=== PATIENT | male | born 1985 | race Caucasian/White ===

== ENCOUNTER 2020-02-27 21:08 | Emergency (ER) | payer MEDICAID ==
[~2020-02-27] VITALS: Ht 175.3 cm; Wt 65.9 kg
--- NOTE | 2020-02-27 21:24 | NUR ---
pt bib ems, pt found at [facility], pt found to be drunk. vss. pt puked when arriving to hospital, suction at bedside. pt responsive when talking with him, pt aware he is at hospital and responds to name. pt slurring speech and dozing off when talking with him. erp saw pt, pt provided urinal, on continuous pulse ox
--- NOTE | 2020-02-27 23:10 | NUR ---
PT SNORING IN BED, RESP EVEN/UNLABORED. EKG TAKEN AND GIVEN TO ERP
[2020-02-28] MEDS ORDERED: ALBUTEROL SULFATE 2.5 MG/3 ML ONE (00:18)
[2020-02-28] MEDS ORDERED: SODIUM CHLORIDE 0.9% 1,000ML IVBOLUS ONE (00:30)
[2020-02-28] MEDS ORDERED: SODIUM CHLORIDE FLUSH 10ML SYR IVF ONE (00:30)
--- NOTE | 2020-02-28 00:38 | NUR ---
PT URINATED ALL OVER HIMSELF, PT STRIPPED, CLEANED UP, GIVEN FRESH LINENS, IVF STILL RUNNING, MONITORS IN PLACE
--- NOTE | 2020-02-28 02:54 | NUR ---
PT GIVEN BOTTLE OF WATER TO DRINK AND PT WAS ABLE TO DRINK ENTIRE BOTTLE WITHOUT ISSUES.
[2020-02-28 03:02] VITALS: BP 107/63
== END 2020-02-28 03:44 | disposition home or self-care (01) ==
LOC: ED 21:38
DX: F10.120 Alcohol abuse with intoxication, uncomplicated (principal); F17.210 Nicotine dependence, cigarettes, uncomplicated; Z72.9 Problem related to lifestyle, unspecified; R11.2 Nausea with vomiting, unspecified; Y90.0 Blood alcohol level of less than 20 mg/100 ml; I48.91 Unspecified atrial fibrillation
CPT/HCPCS: 82962; 93005; 96360; 99285; 99406; J7030

== ENCOUNTER 2020-05-24 20:27 | Emergency (ER) | payer MEDICAID ==
[~2020-05-24] VITALS: Ht 175.3 cm; Wt 68.0 kg
--- NOTE | 2020-05-24 20:41 | NUR ---
Pt CORY [place] for pt being [place]. Pt states he drank over 20 beers today. Pt Denies hx, pt denies any medical hx. Pt with no complaints. Pt on monitor. Warm blanket given. Will monitor.
[2020-05-24] MEDS ORDERED: SODIUM CHLORIDE FLUSH 10ML SYR IVF ONE (22:00)
[2020-05-24] MEDS ORDERED: SODIUM CHLORIDE 0.9% 1,000ML IVBOLUS ONE (22:00)
--- NOTE | 2020-05-24 23:23 | NUR ---
Pt remains calm in bed, awakes to slight painful stimuli and answers simple questions appropriatley. Pt MOA, VSS. Warm blanket given. Will continue to monitor.
--- NOTE | 2020-05-25 02:42 | NUR ---
TASK RN: ASSISTED PT TO GET UP, PT DRESSING SELF, AMBULATORY WITH STEADY GAIT AT THIS TIME. NAD.
--- NOTE | 2020-05-25 02:51 | NUR ---
task rn: Patient given discharge instructions and they have confirmed that they understand the instructions. Patient ambulatory with steady gait. nad, denies additional questions or needs at this time. no personal belongings left in room after dc.
[2020-05-25 02:52] VITALS: BP 96/53
== END 2020-05-25 02:54 | disposition home or self-care (01) ==
LOC: ED 21:31
DX: F10.220 Alcohol dependence with intoxication, uncomplicated (principal); F17.210 Nicotine dependence, cigarettes, uncomplicated; Z72.9 Problem related to lifestyle, unspecified; Y90.0 Blood alcohol level of less than 20 mg/100 ml
CPT/HCPCS: 96360; 99283; 99406; J7030